=== PATIENT | female | born 1940 | race Caucasian/White ===

== ENCOUNTER 2017-08-04 13:07 | Outpatient (CLI) | payer MEDICARE, BC ==
[2017-08-04] MEDS ORDERED: Gadobenate Dimeglumine 529 MG/1 ML (20ML VIAL) ONE (13:28)
--- NOTE | 2017-08-04 16:38 | MRI ---
BRAIN MRI WITHOUT AND WITH CONTRAST: HISTORY: Gait abnormality since last summer. Frequent falls. COMPARISON: None. TECHNIQUE: Brain MRI is performed with and without intravenous Gadolinium administration. Multisequential, mult iplanar imaging performed. FINDINGS: No hemorrhage on the axial gradient echo sequence. No parenchymal mass, mass effect, or midline shift. Age-appropriate atrophy. Cortical pedraza-white ma tter differentiation is preserved. There is a mucus retention cyst in the right maxillary sinus. Otherwise, sinuses and mastoid air deny ls are unremarkable. Ventricles and sulci are patent and symmetric. Central arterial flow voids are maintained. Absent r estricted diffusion. Calvarium has a normal T1 marrow signal intensity. Midline brain parenchymal structures are unremark able. No pathologic enhancement of the brain parenchyma. IMPRESSION: 1. Age-appropriate atrophy. 2. Chronic small-vessel ischemic change of the white matter. 3. No pathologic enhancement of the brain parenchyma. 4. Absent restricted diffusion. No acute infarction. POS: [facility]
== END 2017-08-04 13:08 | disposition home or self-care (01) ==
LOC: TBSIIMAG 13:07
PROVIDERS: ATTEND Psychiatry & Neurology Neurology
DX: R26.9 Unspecified abnormalities of gait and mobility (principal); I67.82 Cerebral ischemia
CPT/HCPCS: 70553; A9579

== ENCOUNTER 2017-10-10 10:25 | Outpatient (CLI) | payer MEDICARE, BC | END 2017-10-10 10:26 | disposition home or self-care (01) | LOC: BICMAMMO 10:25 | PROVIDERS: ATTEND Internal Medicine Hematology & Oncology | DX: Z08 Encounter for follow-up examination after completed treatment for malignant neoplasm (principal); Z85.3 Personal history of malignant neoplasm of breast | CPT/HCPCS: 77066; G0279 ==

== ENCOUNTER 2017-12-18 10:18 | Outpatient (CLI) | payer MEDICARE, BC | END 2017-12-18 10:19 | disposition home or self-care (01) | LOC: BICMAMMO 10:18 | PROVIDERS: ATTEND Internal Medicine Hematology & Oncology | DX: M85.80 Other specified disorders of bone density and structure, unspecified site (principal); M85.89 Other specified disorders of bone density and structure, multiple sites; Z85.3 Personal history of malignant neoplasm of breast | CPT/HCPCS: 77080 ==

== ENCOUNTER 2018-10-13 10:04 | Outpatient (CLI) | payer MEDICARE, BC ==
--- NOTE | 2018-10-13 10:44 | MMO ---
Bilateral MAMMO Bilat Diag [facility]. CLINICAL HISTORY: Patient is 77 years old and is seen for diagnostic exam. The patient has no family history of breast cancer. The patient has a history of invasive ductal left breast carcinoma in 2015. The patient has a history of left Excisional Biopsy in 2015 - malignant and left Lumpectomy in 2015 - malignant. VIEWS: The views performed were: bilateral craniocaudal with tomosynthesis; bilateral mediolateral oblique with tomosynthesis; and bilateral mediolateral. FILMS COMPARED: The present examination has been compared to prior imaging studies performed at [facility] on 10/10/2017, and at [facility] on 02/08/2015, 02/09/2015, 02/13/2016 and 08/14/2016. MAMMOGRAM FINDINGS: There are scattered fibroglandular densities. Finding 1: There are stable post operative changes seen in the left breast. Finding 2: There are stable benign appearing calcifications seen in both breasts. There are no suspicious masses, suspicious calcifications, or new areas of architectural distortion. IMPRESSION: THERE IS NO MAMMOGRAPHIC EVIDENCE OF MALIGNANCY. A ROUTINE FOLLOW-UP MAMMOGRAM IN 1 YEAR IS RECOMMENDED. THE RESULTS OF THIS EXAM WERE SENT TO THE PATIENT. ACR BI-RADS Category 2 - Benign finding MAMMOGRAPHY NOTE: 1. A negative mammogram report should not delay a biopsy if a dominant of clinically suspicious mass is present. 2. Approximately 10% to 15% of breast cancers are not detected by mammography. 3. Adenosis and dense breasts may obscure an underlying neoplasm.
== END 2018-10-13 10:05 | disposition home or self-care (01) ==
LOC: BICMAMMO 10:04
PROVIDERS: ATTEND Internal Medicine Hematology & Oncology
DX: Z85.3 Personal history of malignant neoplasm of breast (principal)
CPT/HCPCS: 77066; G0279

== ENCOUNTER 2018-12-22 10:29 | Outpatient (CLI) | payer MEDICARE, BC ==
--- NOTE | 2018-12-22 11:27 | BD ---
DEXA DENSITOMETRY: HISTORY: Postmenopausal osteoporosis screening. FINDINGS: BMD (g/cm2) T-SCORE RIGHT FEMORAL NECK 0.640 -1.9 TOTAL 0.815 -1.0 Total right femur on 12/10/2016 was 0.780 and on 05/27/2014 was 0.853. LEFT FEMORAL NECK 0.640 -1.9 TOTAL 0.813 -1.1 Total left femur on 12/10/2016 was 0.750 and on 05/27/2014 was 0.786. IMPRESSION: The bone mineral density of both femurs indicate osteopenia. Mild increased density at both femurs n oted when compared to prior studies, as noted above. POS: [facility]
== END 2018-12-22 10:30 | disposition home or self-care (01) ==
LOC: BICMAMMO 10:29
PROVIDERS: ATTEND Internal Medicine Hematology & Oncology
DX: M85.89 Other specified disorders of bone density and structure, multiple sites (principal); Z85.3 Personal history of malignant neoplasm of breast
CPT/HCPCS: 77080

== ENCOUNTER 2019-11-24 08:17 | Outpatient (CLI) | payer MEDICARE, BC ==
--- NOTE | 2019-11-24 09:02 | MMO ---
Bilateral MAMMO Bilat Diag [facility]. CLINICAL HISTORY: Patient is 79 years old and is seen for diagnostic exam. The patient has no family history of breast cancer. The patient has a history of invasive ductal left breast carcinoma in 2015. The patient has a history of left Excisional Biopsy in 2015 - malignant and left Lumpectomy in 2015 - malignant. VIEWS: The views performed were: bilateral craniocaudal with tomosynthesis; bilateral mediolateral oblique with tomosynthesis; and bilateral mediolateral with tomosynthesis. FILMS COMPARED: The present examination has been compared to prior imaging studies performed at [facility] on 10/10/2017 and 10/13/2018, and at [facility] on 02/13/2016 and 08/14/2016. This study has been interpreted with the assistance of computer-aided detection. MAMMOGRAM FINDINGS: There are scattered fibroglandular densities. There are stable post-operative changes. There are benign appearing calcifications in the right breast. There are benign appearing calcifications in the left breast. There are no suspicious masses, calcifications or areas of architectural distortion in the right breast. There are no suspicious masses, suspicious calcifications, or new areas of architectural distortion. IMPRESSION: THERE IS NO MAMMOGRAPHIC EVIDENCE OF MALIGNANCY. A ROUTINE FOLLOW-UP MAMMOGRAM IN 1 YEAR IS RECOMMENDED. THE RESULTS OF THIS EXAM WERE SENT TO THE PATIENT. ACR BI-RADS Category 2 - Benign finding MAMMOGRAPHY NOTE: 1. A negative mammogram report should not delay a biopsy if a dominant of clinically suspicious mass is present. 2. Approximately 10% to 15% of breast cancers are not detected by mammography. 3. Adenosis and dense breasts may obscure an underlying neoplasm. Reported by: JARROD LIRIANO MD Electonically Signed: [id number]
== END 2019-11-24 08:18 | disposition home or self-care (01) ==
LOC: BICMAMMO 08:17
PROVIDERS: ATTEND Internal Medicine Hematology & Oncology
DX: Z08 Encounter for follow-up examination after completed treatment for malignant neoplasm (principal); Z85.3 Personal history of malignant neoplasm of breast
CPT/HCPCS: 77066; G0279

== ENCOUNTER 2019-12-28 08:43 | Outpatient (CLI) | payer MEDICARE, BC ==
--- NOTE | 2019-12-28 09:18 | BD ---
EXAM: DEXA bone density examination HISTORY: 79-year-old postmenopausal female for screening COMPARISON: 12/22/2018 FINDINGS: Right femoral neck--bone mineral density0.623; T score -2.0 Total proximal right femur--bone mineral density 0.839; T score -0.8 Left femoral neck--bone mineral density0.666; T score -1.6 Total proximal left femur--bone mineral density 0.815; T score -1.0 IMPRESSION: Osteopenia.
== END 2019-12-28 08:44 | disposition home or self-care (01) ==
LOC: BICMAMMO 08:43
PROVIDERS: ATTEND Internal Medicine Hematology & Oncology
DX: Z13.820 Encounter for screening for osteoporosis (principal); M85.89 Other specified disorders of bone density and structure, multiple sites; Z78.0 Asymptomatic menopausal state
CPT/HCPCS: 77080

== ENCOUNTER 2020-11-27 09:43 | Outpatient (CLI) | payer MEDICARE, BC | END 2020-11-27 09:44 | disposition home or self-care (01) | LOC: BICMAMMO 09:43 | PROVIDERS: ATTEND Family Medicine | DX: Z12.31 Encounter for screening mammogram for malignant neoplasm of breast (principal); Z85.3 Personal history of malignant neoplasm of breast; Z98.890 Other specified postprocedural states | CPT/HCPCS: 77063; 77067 ==

== ENCOUNTER 2021-11-29 10:18 | Outpatient (CLI) | payer MEDICARE, BC | END 2021-11-29 10:19 | disposition home or self-care (01) | LOC: BICMAMMO 10:18 | PROVIDERS: ATTEND Family Medicine | DX: Z12.31 Encounter for screening mammogram for malignant neoplasm of breast (principal); Z85.3 Personal history of malignant neoplasm of breast; Z98.890 Other specified postprocedural states | CPT/HCPCS: 77063; 77067 ==

== ENCOUNTER 2023-01-21 10:40 | Outpatient (CLI) | payer MEDICARE, BC | END 2023-01-21 10:41 | disposition home or self-care (01) | LOC: BICMAMMO 10:40 | PROVIDERS: ATTEND Family Medicine | DX: Z12.31 Encounter for screening mammogram for malignant neoplasm of breast (principal); N63.20 Unspecified lump in the left breast, unspecified quadrant; Z91.89 Other specified personal risk factors, not elsewhere classified; Z90.12 Acquired absence of left breast and nipple | CPT/HCPCS: 77063; 77067 ==

== ENCOUNTER → 2023-01-27 | Day surgery (SDC) | payer MEDICARE, BC | LOC: BICULT 12:17 | PROVIDERS: ATTEND Family Medicine | DX: N63.20 Unspecified lump in the left breast, unspecified quadrant (principal); N60.32 Fibrosclerosis of left breast | CPT/HCPCS: 19083; 88305; 88341; 88342 ==

== ENCOUNTER 2023-02-11 11:00 | Outpatient (CLI) | payer MEDICARE, BC | END 2023-02-11 11:01 | disposition home or self-care (01) | LOC: PET 11:00 | PROVIDERS: ATTEND Family Medicine | DX: N63.20 Unspecified lump in the left breast, unspecified quadrant (principal) | CPT/HCPCS: 78815; A9552 ==

== ENCOUNTER 2024-05-18 20:07 | Inpatient (IN) | payer MEDICARE, BC ==
[2024-05-18] MEDS ORDERED: Ondansetron PF 4 MG/2 ML Vial IVP PRN (21:39)
[2024-05-18 21:42] VITALS: BMI 25.9
[2024-05-18] MEDS ORDERED: Glucagon 1 MG/ML KIT IM PRN (21:43)
[2024-05-18] MEDS ORDERED: Dextrose 50% Abboject 50 ML SYRINGE SLOW IVP PRN (21:43)
[2024-05-18] MEDS ORDERED: Dextrose 5% in Water 1,000 ML IV PRN (21:43)
[2024-05-18 22:39] LABS: Lactic Acid 1.99 mmol/L (0.5-2.2)
[2024-05-18 22:41] LABS: Anion Gap 14 mmol/L (10-20); BUN (Urea Nitrogen) 16 mg/dL (9.8-20.1); Calc. Creatinine Clearance 54 mL/min (70-130); Carbon Dioxide 21 mmol/L (23-31); Chloride 101 mmol/L (98-107); Estimated GFR 72; Glucose 325 mg/dL (83-110); Potassium 3.6 mmol/L (3.5-5.1); Sodium 132 mmol/L (136-145)
[2024-05-18] MEDS: Insulin Lispro 100 UNIT/ML 10 ML VIAL SC PRN (23:29)
[2024-05-18] MEDS: Acetaminophen 325 MG TAB PO PRN (23:30)
[2024-05-19] MEDS ORDERED: Pantoprazole DR 40 MG TAB PO PRN (00:32)
[2024-05-19 04:52] LABS: #Basophils 0.03 10x3/uL (0.0-0.2); %Basophils 0.4 % (0.0-1.0); %Lymphocytes 16.1 % (21.0-51.0); %Monocytes 11.2 % (0.0-10.0); %Neutrophils 68.1 % (42.0-75.0); Hematocrit 36.9 % (36.0-47.0); Hemoglobin 12.5 g/dL (12.0-16.0); Mean Corpuscular HGB CONC 33.9 g/dL (32.0-36.0); Mean Corpuscular Hemoglobin 31.2 pg (27.0-31.0); Mean Platelet Volume 9.4 fL (7.4-10.4); Platelet Count 233 10x3/uL (130-400); RBC Distribution Width 12.6 % (11.5-14.5); Red Blood Cell (RBC) Count 4.01 mill/uL (4.20-5.40)
[2024-05-19 05:20] LABS: Anion Gap 15 mmol/L (10-20); BUN (Urea Nitrogen) 12 mg/dL (9.8-20.1); Calc. Creatinine Clearance 59 mL/min (70-130); Calcium 8.9 mg/dL (7.8-10.44); Carbon Dioxide 21 mmol/L (23-31); Chloride 105 mmol/L (98-107); Estimated GFR 82; Glucose 265 mg/dL (83-110); Potassium 3.5 mmol/L (3.5-5.1); Sodium 137 mmol/L (136-145)
[2024-05-19 05:38] LABS: Magnesium 1.6 mg/dL (1.6-2.6)
[2024-05-19] MEDS: Morphine 2 MG/ML VIAL SLOW IVP PRN (05:52)
[2024-05-19] MEDS: hydrALAZINE 20 MG/ML VIAL SLOW IVP PRN (06:24)
[2024-05-19] MEDS: Isosorbide Mononitrate 60 MG ER.TAB PO SCH (09:15)
[2024-05-19] MEDS: Losartan 25 MG TAB PO SCH (09:15)
[2024-05-19] MEDS: Apixaban 2.5 MG TAB PO SCH (09:15)
[2024-05-19] MEDS: hydrALAZINE 25 MG TAB PO SCH (09:15)
[2024-05-19] MEDS: Multivitamin W/ Minerals 1 TAB PO SCH (09:17)
[2024-05-19] MEDS: Venlafaxine HCl XR 75 MG CAP PO SCH (09:17)
[2024-05-19] MEDS: Cholecalciferol 1,000 UNITS (25 MCG) TAB PO SCH (09:17)
[2024-05-19] MEDS: traMADol HCl 50 MG TAB PO PRN (09:17)
[2024-05-19] MEDS: cefTRIAXone\\ROCEPHIN 1 GM in Sodium Chloride 0.9% 100 ML IVPB SCH (15:49)
[2024-05-19] MEDS: metFORMIN 500 MG TAB PO SCH (15:56)
[2024-05-19] MEDS: Insulin Lispro 100 UNIT/ML 10 ML VIAL SC PRN (16:58)
[2024-05-19] MEDS: Ezetimibe 10 MG TAB PO SCH (20:58)
[2024-05-20 04:48] LABS: #Basophils 0.04 10x3/uL (0.0-0.2); %Basophils 0.4 % (0.0-1.0); %Eosinophils 4.2 % (0.0-10.0); %Lymphocytes 19.7 % (21.0-51.0); %Neutrophils 64.4 % (42.0-75.0); Hematocrit 39.5 % (36.0-47.0); Hemoglobin 13.4 g/dL (12.0-16.0); Mean Corpuscular HGB CONC 33.9 g/dL (32.0-36.0); Mean Corpuscular Hemoglobin 31.4 pg (27.0-31.0); Mean Corpuscular Volume 92.5 fL (78.0-98.0); Mean Platelet Volume 9.2 fL (7.4-10.4); Platelet Count 244 10x3/uL (130-400); RBC Distribution Width 12.7 % (11.5-14.5); Red Blood Cell (RBC) Count 4.27 mill/uL (4.20-5.40)
[2024-05-20 04:53] LABS: Anion Gap 14 mmol/L (10-20); BUN (Urea Nitrogen) 13 mg/dL (9.8-20.1); Calc. Creatinine Clearance 52 mL/min (70-130); Calcium 8.7 mg/dL (7.8-10.44); Carbon Dioxide 23 mmol/L (23-31); Chloride 100 mmol/L (98-107); Estimated GFR 69; Glucose 218 mg/dL (83-110); Potassium 3.9 mmol/L (3.5-5.1); Sodium 133 mmol/L (136-145)
[2024-05-20] MEDS: metFORMIN 500 MG TAB PO SCH (08:33)
[2024-05-20] MEDS: hydrALAZINE 25 MG TAB PO SCH (08:33)
[2024-05-20] MEDS: Apixaban 2.5 MG TAB PO SCH (20:27)
[2024-05-20] MEDS ORDERED: Enoxaparin 60 MG (0.6 mL) SYRINGE SC SCH (21:00)
[2024-05-21 03:59] LABS: #Basophils 0.04 10x3/uL (0.0-0.2); %Basophils 0.5 % (0.0-1.0); %Eosinophils 3.7 % (0.0-10.0); %Lymphocytes 16.7 % (21.0-51.0); %Monocytes 10.7 % (0.0-10.0); %Neutrophils 68.3 % (42.0-75.0); Hematocrit 38.9 % (36.0-47.0); Hemoglobin 13.2 g/dL (12.0-16.0); Mean Corpuscular HGB CONC 33.9 g/dL (32.0-36.0); Mean Corpuscular Hemoglobin 31.3 pg (27.0-31.0); Mean Corpuscular Volume 92.2 fL (78.0-98.0); Mean Platelet Volume 9.2 fL (7.4-10.4); Platelet Count 227 10x3/uL (130-400); RBC Distribution Width 12.6 % (11.5-14.5); Red Blood Cell (RBC) Count 4.22 mill/uL (4.20-5.40)
[2024-05-21 04:23] LABS: Anion Gap 15 mmol/L (10-20); BUN (Urea Nitrogen) 16 mg/dL (9.8-20.1); Calc. Creatinine Clearance 55 mL/min (70-130); Calcium 8.8 mg/dL (7.8-10.44); Carbon Dioxide 22 mmol/L (23-31); Chloride 99 mmol/L (98-107); Estimated GFR 74; Glucose 259 mg/dL (83-110); Potassium 4.1 mmol/L (3.5-5.1); Sodium 132 mmol/L (136-145)
[2024-05-21] MEDS ORDERED: Senokot 8.6 MG TAB PO PRN (11:59)
[2024-05-21] MEDS: Senokot 8.6 MG TAB PO SCH (12:39)
[2024-05-21] MEDS: hydrALAZINE 25 MG TAB PO SCH (15:44)
[2024-05-21] MEDS: metFORMIN 500 MG TAB PO SCH (16:35)
[2024-05-22] MEDS ORDERED: Acetaminophen 325 MG TAB PO PRN (14:47)
[2024-05-22] MEDS: Acetaminophen 325 MG TAB PO SCH (16:18)
[2024-05-22] MEDS: glipiZIDE 5 MG TAB PO SCH (16:55)
[2024-05-22] MEDS ORDERED: Cholecalciferol 1,000 UNITS (25 MCG) TAB PO SCH (21:00)
[2024-05-22] MEDS: Docusate 100 MG CAP PO SCH (21:10)
[2024-05-23 05:09] LABS: #Basophils 0.04 10x3/uL (0.0-0.2); %Basophils 0.4 % (0.0-1.0); %Eosinophils 3.6 % (0.0-10.0); %Lymphocytes 13.7 % (21.0-51.0); %Monocytes 11.7 % (0.0-10.0); %Neutrophils 70.3 % (42.0-75.0); Hematocrit 39.1 % (36.0-47.0); Hemoglobin 13.3 g/dL (12.0-16.0); Mean Corpuscular Hemoglobin 31.4 pg (27.0-31.0); Mean Corpuscular Volume 92.2 fL (78.0-98.0); Mean Platelet Volume 9.2 fL (7.4-10.4); Platelet Count 260 10x3/uL (130-400); RBC Distribution Width 12.6 % (11.5-14.5); Red Blood Cell (RBC) Count 4.24 mill/uL (4.20-5.40)
[2024-05-23 05:25] LABS: Anion Gap 15 mmol/L (10-20); BUN (Urea Nitrogen) 17 mg/dL (9.8-20.1); Calc. Creatinine Clearance 58 mL/min (70-130); Carbon Dioxide 25 mmol/L (23-31); Chloride 97 mmol/L (98-107); Estimated GFR 79; Glucose 186 mg/dL (83-110); Magnesium 1.5 mg/dL (1.6-2.6); Potassium 3.9 mmol/L (3.5-5.1); Sodium 133 mmol/L (136-145)
[2024-05-23] MEDS: glipiZIDE 5 MG TAB PO SCH ×2 (09:36→17:48)
[2024-05-23] MEDS ORDERED: Electrolyte Replacement Protocol FS SCH (16:21)
[2024-05-23] MEDS: Potassium Chloride 20 MEQ TAB PO SCH (17:48)
[2024-05-23] MEDS: Magnesium Sulfate In Water 4 GM in Premix 1 BAG IVPB SCH (17:48)
[2024-05-24 05:59] LABS: Anion Gap 12 mmol/L (10-20); BUN (Urea Nitrogen) 20 mg/dL (9.8-20.1); Calc. Creatinine Clearance 65 mL/min (70-130); Calcium 8.9 mg/dL (7.8-10.44); Carbon Dioxide 22 mmol/L (23-31); Chloride 100 mmol/L (98-107); Estimated GFR 87; Glucose 111 mg/dL (83-110); Magnesium 2.1 mg/dL (1.6-2.6); Potassium 4.1 mmol/L (3.5-5.1); Sodium 130 mmol/L (136-145)
[2024-05-24 15:14] VITALS: BP 133/79
[2024-05-24 15:17] VITALS: TEMP 98.6
== END 2024-05-24 15:56 | DRG 638 ==
LOC: 2NO 21:02 → OBSVTOIN 05-19 23:25 → T4-A 05-21 14:43
PROVIDERS: ADMIT Internal Medicine; ATTEND Family Medicine
DX: E11.65 Type 2 diabetes mellitus with hyperglycemia (principal); E87.1 Hypo-osmolality and hyponatremia; I48.20 Chronic atrial fibrillation, unspecified; S82.55XA Nondisplaced fracture of medial malleolus of left tibia, initial encounter for closed fracture; I10 Essential (primary) hypertension; E78.5 Hyperlipidemia, unspecified; E87.6 Hypokalemia; E83.42 Hypomagnesemia; Z79.01 Long term (current) use of anticoagulants; Z85.3 Personal history of malignant neoplasm of breast; Z88.8 Allergy status to other drugs, medicaments and biological substances; Z88.1 Allergy status to other antibiotic agents; Z90.710 Acquired absence of both cervix and uterus
CPT/HCPCS: 36415; 36416; 80048; 83036; 83605; 83735; 85025; 96374; 96375; G0378; J0360; J0696; J1815; J2272; J3475

== ENCOUNTER 2025-02-01 06:11 | Day surgery (SDC) | payer MEDICARE, BC ==
[2025-01-31 10:07] VITALS: BMI 25.2
[2025-02-01] MEDS ORDERED: Etomidate 40 MG (20 mL) VIAL ONE (07:03)
[2025-02-01] MEDS ORDERED: PROPOFOL 200 MG/20 ML VIAL ONE (07:39)
== END 2025-02-01 09:00 | disposition home or self-care (01) ==
LOC: SDC 06:11
PROVIDERS: ATTEND Internal Medicine Cardiovascular Disease
PROC: B24BZZ4 Ultrasonography of Heart with Aorta, Transesophageal (ICD-10-PCS; principal; 2025-02-01)
DX: I48.19 Other persistent atrial fibrillation (principal); I11.0 Hypertensive heart disease with heart failure; I50.20 Unspecified systolic (congestive) heart failure; E11.9 Type 2 diabetes mellitus without complications; Z95.818 Presence of other cardiac implants and grafts; Z96.1 Presence of intraocular lens; Z90.710 Acquired absence of both cervix and uterus; Z88.8 Allergy status to other drugs, medicaments and biological substances; Z88.2 Allergy status to sulfonamides; Z88.1 Allergy status to other antibiotic agents; Z79.01 Long term (current) use of anticoagulants
CPT/HCPCS: 93312; J2704

== ENCOUNTER 2025-04-21 13:30 | Outpatient (CLI) | payer MEDICARE, BC | END 2025-04-21 13:31 | disposition home or self-care (01) | LOC: BICMAMMO 13:30 | PROVIDERS: ATTEND Family Medicine | DX: Z12.31 Encounter for screening mammogram for malignant neoplasm of breast (principal); Z85.3 Personal history of malignant neoplasm of breast; Z91.89 Other specified personal risk factors, not elsewhere classified | CPT/HCPCS: 77063; 77067 ==